=== PATIENT | male | born 1965 | race Hispanic/Latino ===

== ENCOUNTER 2018-09-09 23:58 | Emergency (ER) | payer BC ==
[2018-09-10] MEDS ORDERED: LIDOCAINE HCL MPF 1% 5ML VIAL ONE (01:01)
[2018-09-10] MEDS ORDERED: TETANUS/DIPHTHERIA TOXOID [ADULT] 0.5 ML VIAL IM ONE (01:02)
== END 2018-09-10 01:43 | disposition home or self-care (01) ==
LOC: EDH 23:58
DX: S01.01XA Laceration without foreign body of scalp, initial encounter (principal); S01.81XA Laceration without foreign body of other part of head, initial encounter; W18.39XA Other fall on same level, initial encounter; Y93.89 Activity, other specified; Y92.89 Other specified places as the place of occurrence of the external cause; Y99.8 Other external cause status
CPT/HCPCS: 12032; 12052; 70450; 99283; J3490; 90714

== ENCOUNTER 2018-10-03 11:42 | Emergency (ER) | payer BC | END 2018-10-03 12:05 | disposition home or self-care (01) | LOC: EDH 11:42 | DX: S01.01XD Laceration without foreign body of scalp, subsequent encounter (principal); X58.XXXD Exposure to other specified factors, subsequent encounter | CPT/HCPCS: 99281 ==

== ENCOUNTER 2023-08-07 13:43 | Emergency (ER) | payer BC ==
[~2023-08-07] VITALS: Ht 175.3 cm; Wt 98.0 kg
[2023-08-07 14:38] VITALS: BP 187/103; PULSE 74; RESP 16; O2SAT 98
[2023-08-07] MEDS ORDERED: IBUP-2070 PO (18:26)
== END 2023-08-07 18:51 | disposition home or self-care (01) ==
LOC: EDH 13:43
DX: S20.211A Contusion of right front wall of thorax, initial encounter (principal); W18.39XA Other fall on same level, initial encounter; Y93.89 Activity, other specified; Y92.89 Other specified places as the place of occurrence of the external cause; Y99.8 Other external cause status
CPT/HCPCS: 71100; 71250